=== PATIENT | male | born 1930 | race Caucasian/White ===

== ENCOUNTER → 2016-11-30 | Outpatient (CLI) | payer MEDICARE, BC ==
[2016-11-22 09:31] VITALS: BP 136/84
[~2016-11-30] MED LIST: ASCO100065 PO; ASPI81TA9 PO; CETI10TA22 PO; CHOL20003 PO; CRESTOR10 MG PO; DOCU-27 PO; FEXO180T81 PO; GABA-586 PO; GABA-587 PO; GLUC1TAB71 PO; HYDR12.58 PO; IOHEXOL 240 MG/ML 50ML VIAL. PO ONE; IOHEXOL 300 MG/ML 75 ML VIAL IV ONE; LEVO250T25 PO; LISI-338 PO; LISI2.5T PO; METH1TAB PO; METO25TA4 PO; MONT10TA9 PO; MULT-658 PO; OMEG1CAP38 PO; PANT40TA5 PO; PRED-220 PO; RIVA10TA PO; UBID1CAP19 PO; ZOLP5TAB PO
[2016-11-30 08:49] LABS: CREATININE 1.3 mg/dL (0.7-1.3); GFR 52.5
--- NOTE | 2016-11-30 15:32 | RAD ---
CT of the abdomen and pelvis with contrast, 11/30/2016: History: Abdominal pain Multidetector CT imaging was performed following oral and IV administration of contrast. The heart is mildly enlarged. Transvenous pacing leads extend into the heart. A small amount of pericardial fluid is present. The liver is unremarkable. No gallbladder abnormality is seen. There is no evidence of a pancreatic mass. The spleen is of normal size. There are several small cysts in both kidneys. The largest of these lies on the right and measures 3.5 cm. The kidneys show no evidence of obstruction. No adrenal abnormality is detected. Moderate aortoiliac calcific plaquing is present without evidence of aneurysm. No abdominal or pelvic adenopathy is seen. The bowel loops are not dilated. Several small sigmoid diverticula are noted. No paracolonic inflammatory process is seen. No free fluid or free air is evident in the abdomen or pelvis. IMPRESSION: 1. Small bilateral renal cysts. 2. Mild cardiomegaly with a small pericardial effusion. 3. Mild sigmoid diverticulosis. 4. No acute abdominal or pelvic abnormality is detected. PQRS Compliance Statement: One or more of the following individualized dose reduction techniques were utilized for this examination: 1. Automated exposure control 2. Adjustment of the mA and/or kV according to patient size 3. Use of iterative reconstruction technique
== END | disposition home or self-care (01) ==
LOC: CT 08:18
PROVIDERS: ATTEND Internal Medicine Gastroenterology
DX: I31.3 Pericardial effusion (noninflammatory) (principal); I51.7 Cardiomegaly; N28.1 Cyst of kidney, acquired; I70.0 Atherosclerosis of aorta; K57.30 Diverticulosis of large intestine without perforation or abscess without bleeding
CPT/HCPCS: 36415; 74177; 82565; 84520; Q9966; Q9967

== ENCOUNTER → 2017-03-22 | Outpatient (CLI) | payer MEDICARE, BC ==
[2016-11-22 09:31] VITALS: BP 136/84
[~2017-03-22] MED LIST changes: -IOHEXOL 240 MG/ML 50ML VIAL. PO ONE; -IOHEXOL 300 MG/ML 75 ML VIAL IV ONE
--- NOTE | 2017-03-22 16:07 | KCIC ---
AP pelvis with 2 view right hip HISTORY: Right hip and pelvic pain. Inguinal hernia surgery 2012. [place] a pop in that region one year ago. FINDINGS: Generalized bone demineralization. No evidence of an acute displaced fracture. Note that bone demineralization could limit detection of a nondisplaced fracture. Extensive bowel gas obscures skeletal structures. Joint spaces are intact. Mild deformity of the left inferior pubic ramus may represent an old fracture. IMPRESSION: Bony demineralization. No evidence of acute fracture or dislocation. Electronically signed by: Ananth Huff MD (03/22/2017 4:03 PM)
== END | disposition home or self-care (01) ==
LOC: KCIC 15:15
PROVIDERS: ATTEND Internal Medicine
DX: M81.0 Age-related osteoporosis without current pathological fracture (principal)
CPT/HCPCS: 73502

== ENCOUNTER → 2017-04-20 | Outpatient (CLI) | payer MEDICARE, BC ==
[2016-11-22 09:31] VITALS: BP 136/84
[~2017-04-20] MED LIST changes: +ASPI-612 PO; -ASPI81TA9 PO; -CHOL20003 PO; +CHOL20009 PO; +DOCU-109 PO; -DOCU-27 PO
--- NOTE | 2017-04-20 13:50 | CARD ---
APPROVED REPORT EXAM: Two-dimensional and M-mode echocardiogram with Doppler and color Doppler. Other Information Quality : GoodHR: 68bpm Rhythm : Pacemaker INDICATION Increased shortness of air 2D DIMENSIONS RVDd3.7 (2.9-3.5cm)Left Atrium(2D)5.1 (1.6-4.0cm) IVSd1.2 (0.7-1.1cm)Aortic Root(2D)6.3 (2.0-3.7cm) LVDd6.8 (3.9-5.9cm)LVOT Diameter2.5 (1.8-2.4cm) PWd1.2 (0.7-1.1cm)LVDs5.3 (2.5-4.0cm) FS (%) 21.4 %SV101.5 ml Aortic Valve AoV Peak Floyd.250.5cm/sAoV VTI48.8cm AO Peak GR.25.1mmHgLVOT Peak Floyd.63.6cm/s AO Mean GR.14mmHgAVA (VMAX)1.27cm2 AI P 1/2 Onof966ze Mitral Valve MV E Peak Gr.4mmHgMV E Mean Gr.2mmHg Pulmonary Valve PV Peak Bxvsxhgs69.5cm/s Tricuspid Valve TR P. Fbhyapjc113xh/sTR Peak Gr.24mmHg Pulmonary Vein S1 Rfgzqswu16.0cm/s LEFT VENTRICLE The Left Ventricle is mildly dilated. There is mild concentric left ventricular hypertrophy. Left fátima tricle systolic function is severely impaired. The Ejection Fraction is 25-30%. There is severe globa l hypokinesis of the left ventricle. Tissue Doppler imaging reveals moderate left ventricular diastol ic dysfunction. No left ventricle thrombus noted on this study. RIGHT VENTRICLE The right ventricle is normal size. There is normal right ventricular wall thickness. The right ventr icular systolic function is normal. Device leads in the right heart. ATRIA The left atrium is moderately dilated. The right atrium is moderately dilated. The interatrial septum is intact with no evidence for an atrial septal defect or patent foramen ovale as noted on 2-D or Do ppler imaging. AORTIC VALVE The aortic valve is severely sclerotic. Doppler and Color Flow revealed mild aortic regurgitation. Do ppler and color-flow analysis revealed mild aortic stenosis with maximum pressure gradient of 25 mmHg and mean pressure gradient of 14 mmHg. MITRAL VALVE Mitral annular calcification is mild. The mitral valve leaflets are thickened. There is no evidence o f mitral valve prolapse. There is no mitral valve stenosis. Doppler and Color Flow revealed mild to m oderate mitral regurgitation. The mitral regurgitant jet is posteriorly directed. TRICUSPID VALVE Doppler and Color Flow revealed mild tricuspid regurgitation. The pulmonary artery systolic pressure is estimated at 29 mmHg. PULMONIC VALVE The pulmonary valve is not well visualized but appears to opens well. Doppler and Color Flow revealed trace pulmonic valvular regurgitation. There is no pulmonic valvular stenosis by spectral Doppler. GREAT VESSELS The aortic root is severely enlarged. 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 The ascend ing aorta is moderately dilated. The pulmonary artery is normal. The IVC is normal in size and collap ses >50% with inspiration. PERICARDIAL EFFUSION There is a trace pericardial effusion with no hemodynamic significance. Critical Notification Critical Value: No <Conclusion> The Left Ventricle is mildly dilated. Left ventricle systolic function is severely impaired. The Ejection Fraction is 25-30%. There is mild concentric left ventricular hypertrophy. Doppler and color-flow analysis revealed mild aortic stenosis with maximum pressure gradient of 25 mm Hg and mean pressure gradient of 14 mmHg. Doppler and Color Flow revealed mild aortic regurgitation. Doppler and Color Flow revealed mild to moderate mitral regurgitation. The mitral regurgitant jet is posteriorly directed. Doppler and Color Flow revealed mild tricuspid regurgitation. The pulmonary artery systolic pressure is estimated at 29 mmHg. There is a trace pericardial effusion with no hemodynamic significance.
== END | disposition home or self-care (01) ==
LOC: ECHO 10:42
PROVIDERS: ATTEND Internal Medicine Cardiovascular Disease
DX: I08.3 Combined rheumatic disorders of mitral, aortic and tricuspid valves (principal); Z95.818 Presence of other cardiac implants and grafts
CPT/HCPCS: 93306

== ENCOUNTER → 2017-12-05 | Outpatient (CLI) | payer MEDICARE, BC | END | disposition home or self-care (01) | LOC: KCIC 13:57 | DX: J18.9 Pneumonia, unspecified organism (principal); D71 Functional disorders of polymorphonuclear neutrophils; I89.8 Other specified noninfective disorders of lymphatic vessels and lymph nodes; R91.8 Other nonspecific abnormal finding of lung field | CPT/HCPCS: 71046 ==

== ENCOUNTER → 2017-12-15 | Outpatient (CLI) | payer MEDICARE, BC | END | disposition home or self-care (01) | LOC: KCIC 14:24 | DX: J18.9 Pneumonia, unspecified organism (principal); J84.10 Pulmonary fibrosis, unspecified; I51.7 Cardiomegaly; I70.0 Atherosclerosis of aorta; I77.1 Stricture of artery | CPT/HCPCS: 71046 ==

== ENCOUNTER → 2018-01-02 | Outpatient (CLI) | payer MEDICARE, BC | LOC: PNCL 14:01 | DX: M54.5 Low back pain (principal); M19.90 Unspecified osteoarthritis, unspecified site; I10 Essential (primary) hypertension; H40.89 Other specified glaucoma; K21.9 Gastro-esophageal reflux disease without esophagitis; B02.8 Zoster with other complications; Z98.890 Other specified postprocedural states; Z95.0 Presence of cardiac pacemaker; Z88.5 Allergy status to narcotic agent; Z79.899 Other long term (current) drug therapy; Z91.048 Other nonmedicinal substance allergy status; Z82.49 Family history of ischemic heart disease and other diseases of the circulatory system | CPT/HCPCS: G0463 ==

== ENCOUNTER → 2018-01-11 | Outpatient (CLI) | payer MEDICARE, BC ==
[~2018-01-11] MED LIST changes: -ASCO100065 PO; -ASPI-612 PO; +BUPIVACAINE MPF 0.25% 10 ML VIAL.; -CETI10TA22 PO; -CHOL20009 PO; -CRESTOR10 MG PO; -DOCU-109 PO; -FEXO180T81 PO; -GABA-586 PO; -GABA-587 PO; -GLUC1TAB71 PO; -HYDR12.58 PO; +IOHEXOL 180 MG/ML 10 ML VIAL.; -LEVO250T25 PO; -LISI-338 PO; -LISI2.5T PO; -METH1TAB PO; -METO25TA4 PO; -MONT10TA9 PO; -MULT-658 PO; -OMEG1CAP38 PO; -PANT40TA5 PO; -PRED-220 PO; -RIVA10TA PO; -UBID1CAP19 PO; -ZOLP5TAB PO; +methylPREDNISolone ACETATE 40 MG/ML VIAL.; +methylPREDNISolone ACETATE 80 MG/ML VIAL.
== END | disposition home or self-care (01) ==
LOC: PNCL 10:57
DX: M51.36 Other intervertebral disc degeneration, lumbar region (principal); M47.816 Spondylosis without myelopathy or radiculopathy, lumbar region; Z88.6 Allergy status to analgesic agent; C44.90 Unspecified malignant neoplasm of skin, unspecified; F32.9 Major depressive disorder, single episode, unspecified; K21.9 Gastro-esophageal reflux disease without esophagitis; I10 Essential (primary) hypertension; I48.91 Unspecified atrial fibrillation; E78.00 Pure hypercholesterolemia, unspecified; G62.9 Polyneuropathy, unspecified
CPT/HCPCS: 64493; 64494; J1030; J1040; J3490; Q9965

== ENCOUNTER → 2018-01-25 | Outpatient (CLI) | payer MEDICARE, BC | END | disposition home or self-care (01) | LOC: PNCL 13:16 | DX: M51.36 Other intervertebral disc degeneration, lumbar region (principal); M47.817 Spondylosis without myelopathy or radiculopathy, lumbosacral region; M47.896 Other spondylosis, lumbar region | CPT/HCPCS: G0463 ==

== ENCOUNTER → 2018-01-27 | Outpatient (CLI) | payer MEDICARE, BC | END | disposition home or self-care (01) | LOC: PNCL 10:40 | DX: M51.37 Other intervertebral disc degeneration, lumbosacral region (principal); M47.817 Spondylosis without myelopathy or radiculopathy, lumbosacral region | CPT/HCPCS: 64493; 64494; J1030; J1040; J3490; Q9965 ==

== ENCOUNTER → 2018-02-10 | Outpatient (CLI) | payer MEDICARE, BC | END | disposition home or self-care (01) | LOC: PNCL 10:03 | DX: M51.36 Other intervertebral disc degeneration, lumbar region (principal); M47.817 Spondylosis without myelopathy or radiculopathy, lumbosacral region | CPT/HCPCS: G0463 ==

== ENCOUNTER → 2018-02-21 | Outpatient (CLI) | payer MEDICARE, BC ==
[~2018-02-21] MED LIST changes: -IOHEXOL 180 MG/ML 10 ML VIAL.; +LIDOCAINE 1% PF 2 ML VIAL.; +LIDOCAINE 2% PF Vial for OR 5 ML VIAL.
== END | disposition home or self-care (01) ==
LOC: PNCL 13:11
DX: M51.36 Other intervertebral disc degeneration, lumbar region (principal); M47.817 Spondylosis without myelopathy or radiculopathy, lumbosacral region; I10 Essential (primary) hypertension; E78.00 Pure hypercholesterolemia, unspecified; K21.9 Gastro-esophageal reflux disease without esophagitis; F32.9 Major depressive disorder, single episode, unspecified; I48.91 Unspecified atrial fibrillation; H91.90 Unspecified hearing loss, unspecified ear; Z98.49 Cataract extraction status, unspecified eye; G62.89 Other specified polyneuropathies; Z95.5 Presence of coronary angioplasty implant and graft; Z95.0 Presence of cardiac pacemaker; Z86.010 Personal history of colon polyps; Z98.890 Other specified postprocedural states; Z85.828 Personal history of other malignant neoplasm of skin; Z88.5 Allergy status to narcotic agent; Z79.899 Other long term (current) drug therapy
CPT/HCPCS: 64635; 64636; J1030; J1040; J3490

== ENCOUNTER → 2018-03-21 | Outpatient (CLI) | payer MEDICARE, BC | END | disposition home or self-care (01) | LOC: PNCL 13:42 | DX: M51.36 Other intervertebral disc degeneration, lumbar region (principal); M47.817 Spondylosis without myelopathy or radiculopathy, lumbosacral region | CPT/HCPCS: G0463 ==

== ENCOUNTER → 2018-03-24 | Outpatient (CLI) | payer MEDICARE, BC ==
[2018-03-24] MEDS: REGADENOSON 0.4 MG/5 ML DISP.SYRIN. IV (11:45)
== END | disposition home or self-care (01) ==
LOC: ECHO 07:45
DX: I48.91 Unspecified atrial fibrillation (principal); I31.3 Pericardial effusion (noninflammatory); I27.20 Pulmonary hypertension, unspecified; I08.3 Combined rheumatic disorders of mitral, aortic and tricuspid valves
CPT/HCPCS: 78452; 93017; 93306; 96374; 96375; 96376; A9500; J2785

== ENCOUNTER → 2018-03-28 | Outpatient (CLI) | payer MEDICARE, BC | END | disposition home or self-care (01) | LOC: CT 14:38 | DX: M51.16 Intervertebral disc disorders with radiculopathy, lumbar region (principal); M48.061 Spinal stenosis, lumbar region without neurogenic claudication; N28.1 Cyst of kidney, acquired; Z88.5 Allergy status to narcotic agent; Z98.49 Cataract extraction status, unspecified eye; Z96.1 Presence of intraocular lens; G62.9 Polyneuropathy, unspecified; Z95.5 Presence of coronary angioplasty implant and graft; E78.00 Pure hypercholesterolemia, unspecified; I48.91 Unspecified atrial fibrillation; I10 Essential (primary) hypertension; Z79.01 Long term (current) use of anticoagulants; Z86.010 Personal history of colon polyps; K21.9 Gastro-esophageal reflux disease without esophagitis; F32.9 Major depressive disorder, single episode, unspecified; Z85.828 Personal history of other malignant neoplasm of skin | CPT/HCPCS: 72131 ==

== ENCOUNTER → 2018-04-17 | Outpatient (CLI) | payer MEDICARE, BC | END | disposition home or self-care (01) | LOC: US 13:46 | DX: I70.293 Other atherosclerosis of native arteries of extremities, bilateral legs (principal); M79.89 Other specified soft tissue disorders; I12.9 Hypertensive chronic kidney disease with stage 1 through stage 4 chronic kidney disease, or unspecified chronic kidney disease; N18.3 Chronic kidney disease, stage 3 (moderate); E78.5 Hyperlipidemia, unspecified; E78.00 Pure hypercholesterolemia, unspecified; J44.9 Chronic obstructive pulmonary disease, unspecified | CPT/HCPCS: 93925; 93970 ==

== ENCOUNTER → 2018-06-30 | Outpatient (CLI) | payer MEDICARE, BC ==
[2016-11-22 09:31] VITALS: BP 136/84
[~2018-06-30] MED LIST changes: +ASCO100065 PO; +ASPI-612 PO; -BUPIVACAINE MPF 0.25% 10 ML VIAL.; +CETI10TA22 PO; +CHOL20009 PO; +CRESTOR10 MG PO; +DOCU-109 PO; +FEXO180T81 PO; +FURO40TA4 PO; +GABA-586 PO; +GABA-587 PO; +GLUC1TAB71 PO; +HYDR12.58 PO; +LEVO250T25 PO; -LIDOCAINE 1% PF 2 ML VIAL.; -LIDOCAINE 2% PF Vial for OR 5 ML VIAL.; +LISI-338 PO; +LISI2.5T PO; +METH1TAB PO; +METO25TA4 PO; +MONT10TA9 PO; +MULT-658 PO; +OMEG1CAP38 PO; +OMEP20CA9 PO; +PANT40TA5 PO; +POTA10TA12 PO; +PRED-220 PO; +RIVA10TA PO; +RIVA15TA PO; +UBID1CAP19 PO; +ZOLP5TAB PO; -methylPREDNISolone ACETATE 40 MG/ML VIAL.; -methylPREDNISolone ACETATE 80 MG/ML VIAL.
--- NOTE | 2018-06-30 15:35 | CARD ---
MR#: [id number] Date of Study: 06/30/2018 Ordering Physician: TREMAYNE FLORES, Referring Physician: TREMAYNE FLORES, Tech: Mel Avalos APPROVED REPORT EXAM: Two-dimensional and M-mode echocardiogram with Doppler and color Doppler. Other Information Quality : AverageHR: 69bpm INDICATION Cardiomyopathy RISK FACTORS Hypertension Hyperlipidemia 2D DIMENSIONS RVDd2.2 (2.9-3.5cm)Left Atrium(2D)5.1 (1.6-4.0cm) IVSd1.4 (0.7-1.1cm)Aortic Root(2D)4.9 (2.0-3.7cm) LVDd7.2 (3.9-5.9cm)LVOT Diameter2.6 (1.8-2.4cm) PWd1.5 (0.7-1.1cm)LVDs5.8 (2.5-4.0cm) FS (%) 19.3 %SV105.4 ml Aortic Valve AoV Peak Floyd.293.1cm/sAoV VTI52.8cm AO Peak GR.34.4mmHgLVOT Peak Floyd.55.7cm/s AO Mean GR.16mmHgAVA (VMAX)0.98cm2 Mitral Valve MV E Zlsvzeoi91.0cm/sMV DECEL ITDU139fp MV A Pqegexph84.2cm/sE/A Ratio3.3 Pulmonary Valve PV Peak Egugazjj51.2cm/s Tricuspid Valve TR P. Nkuqyfej525dl/sRAP RLCVBSEG42mmQe TR Peak Gr.63azRvFAPE31jhPp Pulmonary Vein S1 Bohyfxnm88.2cm/sD2 Vtdpleue26.7cm/s PVa cgdozyyg721dhaq LEFT VENTRICLE The Left Ventricle is moderately dilated. There is borderline concentric left ventricular hypertrophy . The systolic function is moderate to moderately severely impaired. The Ejection Fraction is 30-35%. There is global hypokinesis of the left ventricle. RIGHT VENTRICLE The right ventricle is normal size. There is normal right ventricular wall thickness. The right ventr icular systolic function is normal. ATRIA The left atrium is moderately dilated. The right atrium is dilated. The interatrial septum is intact with no evidence for an atrial septal defect or patent foramen ovale as noted on 2-D or Doppler imagi ng. AORTIC VALVE The aortic valve is calcified and displays decreased opening. Doppler and Color Flow revealed no sign ificant aortic regurgitation. There is mild valvular aortic stenosis. The aortic valve maximum pressu re gradient of 34 mmHg and mean pressure gradient of 16 mmHg. Doppler and color-flow analysis reveale d mild to moderate aortic stenosis. MITRAL VALVE The mitral valve is mildly thickened. Mitral annular calcification is mild. There is no mitral valve stenosis. Doppler and Color-flow revealed trace mitral regurgitation. TRICUSPID VALVE Doppler and Color Flow revealed trace tricuspid regurgitation. PULMONIC VALVE The pulmonary valve is normal in structure and function. Doppler and Color Flow revealed trace pulmon ic valvular regurgitation. GREAT VESSELS The aortic root is significantly enlarged. 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 Normal pulmonar y venous flow (Doppler). The IVC is dilated and collapses <50% with inspiration. PERICARDIAL EFFUSION There is a trace pericardial effusion with no hemodynamic significance. Critical Notification Critical Value: No <Conclusion> The left ventricle is moderately dilated. The systolic function is moderate to moderately severely impaired. The Ejection Fraction is 30-35%. There is global hypokinesis. The aortic valve is calcified and displays decreased opening. The aortic valve maximum pressure gradient of 34 mmHg and mean pressure gradient of 16 mmHg. Doppler and color-flow analysis revealed mild to moderate aortic stenosis. Doppler and Color Flow revealed no significant aortic regurgitation. Doppler and Color Flow revealed trace tricuspid regurgitation. The aortic root is significantly enlarged. 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 Signed by : Tremayne Flores MD Electronically Approved : 06/30/2018 15:33:45
== END | disposition home or self-care (01) ==
LOC: ECHO 13:25
PROVIDERS: ATTEND Internal Medicine Cardiovascular Disease
DX: I35.0 Nonrheumatic aortic (valve) stenosis (principal); E78.00 Pure hypercholesterolemia, unspecified; K21.9 Gastro-esophageal reflux disease without esophagitis; J44.9 Chronic obstructive pulmonary disease, unspecified; I12.9 Hypertensive chronic kidney disease with stage 1 through stage 4 chronic kidney disease, or unspecified chronic kidney disease; N18.3 Chronic kidney disease, stage 3 (moderate); I48.2 Chronic atrial fibrillation; I25.10 Atherosclerotic heart disease of native coronary artery without angina pectoris; Z95.818 Presence of other cardiac implants and grafts; Z95.5 Presence of coronary angioplasty implant and graft; Z95.0 Presence of cardiac pacemaker; Z85.828 Personal history of other malignant neoplasm of skin; Z86.79 Personal history of other diseases of the circulatory system; Z86.2 Personal history of diseases of the blood and blood-forming organs and certain disorders involving the immune mechanism; Z86.010 Personal history of colon polyps; Z88.8 Allergy status to other drugs, medicaments and biological substances; Z88.5 Allergy status to narcotic agent; Z88.6 Allergy status to analgesic agent; Z91.048 Other nonmedicinal substance allergy status; Z82.49 Family history of ischemic heart disease and other diseases of the circulatory system
CPT/HCPCS: 93306

== ENCOUNTER 2018-09-04 16:25 | Emergency (ER) | payer MEDICARE, BC ==
[~2018-09-04] VITALS: Ht 175.3 cm; Wt 71.7 kg
[2018-09-04 16:43] VITALS: BP 156/74
[2018-09-04] MEDS ORDERED: DIPHTH,PERTUSS(ACELL),TET TOX 0.5 ML DISP.SYRIN. VAX IM ONE (16:45)
[2018-09-04] MEDS ORDERED: LIDOCAINE/EPI/TETRACAINE TOPICAL GEL 3 ML. TP ONE (16:45)
--- NOTE | 2018-09-04 17:03 | RAD ---
3 view study of the right thumb Clinical indications: Laceration impact injury of the first digit. FINDINGS: There is a nondisplaced longitudinal fracture of the medial distal corner of the metaphysis and epiphysis of the first proximal phalanx with intra-articular extension but no significant articular surface offset. No dislocation is seen. No lytic process. IMPRESSION: Posttraumatic acute fracture of the first proximal phalanx. Electronically signed by: Darryl Hercules MD (09/04/2018 5:00 PM) [facility]
[2018-09-04] MEDS ORDERED: cefTRIAXone IM 1 GM VIAL IM ONE (17:15)
[2018-09-04] MEDS ORDERED: LIDOCAINE 1% PF 2 ML VIAL. INJ ONE (17:15)
--- NOTE | 2018-09-04 17:51 | PHYS DOC ---
Past Medical History Past Medical History: No Pertinent History Past Surgical History: No Surgical History Alcohol Use: None Drug Use: None Adult General Chief Complaint Chief Complaint: THUMB HPI HPI Patient is a 88 year old male who presents with right thumb laceration, patient states he was wiping leaves off the lawnmower in the blades cut him. Patient is right-handed. Review of Systems Review of Systems Constitutional: Denies fever or chills [] Musculoskeletal: Denies back pain or joint pain [] Integument:right thumb laceration Neurologic: Denies headache, focal weakness or sensory changes [] All other systems were reviewed and found to be within normal limits, except as documented in this note. Current Medications Current Medications Current Medications Medications (Trade) Dose Ordered Sig/Guevara Start Time Stop Time Status Last Admin Dose Admin Ceftriaxone Sodium (Rocephin Im) 1 gm 1X ONCE 09/04/18 17:15 09/04/18 17:16 DC 09/04/18 17:21 1 GM Diphtheria/ Tetanus/Acell Pertussis (Boostrix) 0.5 ml ONCE ONCE 09/04/18 16:45 09/04/18 16:46 DC 09/04/18 16:41 0.5 ML Lidocaine HCl (Xylocaine-Mpf 1% 2ml Vial) 2 ml 1X ONCE 09/04/18 17:15 09/04/18 17:16 DC 09/04/18 17:22 2 ML Lidocaine/ Epinephrine (Let Topical) 3 ml 1X ONCE 09/04/18 16:45 09/04/18 16:46 DC 09/04/18 16:39 3 ML Allergies Allergies Allergies Coded Allergies Type Severity Reaction Last Updated Verified morphine Adverse Reaction Mild Anxiety 11/22/16 Yes Physical Exam Physical Exam Constitutional: Well developed, well nourished, no acute distress, non-toxic appearance. [] Skin: Skin avulsion type laceration at the tip of the finger approx. 2X1 cm, no obvious tendon involvement, patient able to flex and extend the finger in all the joints. Subungual hematoma noted on the nail bed approximately 20% +2 right radial pulse. Adequate radius sensation to the right thumb. Back: No tenderness, no CVA tenderness. [] Extremities: No tenderness, no cyanosis, no clubbing, ROM intact, no edema. [] Neurologic: Alert and oriented X 3, normal motor function, normal sensory function, no focal deficits noted. [] Psychologic: Affect normal, judgement normal, mood normal. [] Current Patient Data Vital Signs Vital Signs Date Time Temp Pulse Resp B/P (MAP) Pulse Ox O2 Delivery O2 Flow Rate FiO2 09/04/18 16:43 98.1 80 20 156/74 (101) 99 Room Air 98.1 EKG EKG [] Radiology/Procedures Radiology/Procedures []PROCEDURE: FINGER(S) RIGHT 3 view study of the right thumb Clinical indications: Laceration impact injury of the first digit. FINDINGS: There is a nondisplaced longitudinal fracture of the medial distal corner of the metaphysis and epiphysis of the first proximal phalanx with intra-articular extension but no significant articular surface offset. No dislocation is seen. No lytic process. IMPRESSION: Posttraumatic acute fracture of the first proximal phalanx. Electronically signed by: Dafne Hercules MD (09/04/2018 5:00 PM) [facility] DICTATED and SIGNED BY: DAFNE HERCULES MD DATE: 09/04/181657 Course & Med Decision Making Course & Med Decision Making Pertinent Labs and Imaging studies reviewed. (See chart for details) This is a 88-year-old male patient presenting to the ED today with a skin avulsion to the right thumb from lawnmower injury, patient was caught by one of the blades while wiping off leaves from the lawnmower. See history of present illness. Right thumb x-rays interpreted by radiologist were noted for posttraumatic acute fracture of the first proximal phalanx. Finger was cleaned and covered with non stick dressing splint provided. Ice elevation. Given Rocephin in the ED 1 gm. Patient will follow up with hand surgeon in the course of this week. Discharge and cephalexin. Tetanus updated Dragon Disclaimer Dragon Disclaimer This electronic medical record was generated, in whole or in part, using a voice recognition dictation system. Departure Departure Impression: Primary Impression: Finger fracture, right Additional Impression: Avulsion of skin of finger Disposition: 01 HOME, SELF-CARE Condition: STABLE Referrals: LINDY ALEGRIA MD (PCP) Patient Instructions: Deep Skin Avulsion, Finger Avulsion Additional Instructions: You were evaluated in the emergency room for right thumb laceration. You also have a fracture to the affected finger. Please call [facility] tomorrow and request an appointment with a hand surgeon. Their number is [phone]. Take your antibiotics to completion, Ice and elevate the extremity. Scripts Docusate Sodium (DOCUSATE SODIUM) 100 Mg Capsule 1 CAP PO DAILY, #30 CAP Prov: MATTHEW DYE APRN 09/04/18 Acetaminophen With Codeine (TYLENOL WITH CODEINE #3 TABLET) 1 Each Tablet 1 TAB PO PRN Q6HRS PRN for PAIN, #20 TAB Prov: MATTHEW DYE APRN 09/04/18 Cephalexin (CEPHALEXIN) 500 Mg Tablet 1 TAB PO QID, #40 TAB Prov: MATTHEW DYE APRN 09/04/18 Problem Qualifiers Primary Impression: Finger fracture, right Encounter type: initial encounter Finger: thumb Fracture type: open Phalanx: distal Fracture alignment: nondisplaced Qualified Codes: S62.524B - Nondisplaced fracture of distal phalanx of right thumb, initial encounter for open fracture Additional Impression: Avulsion of skin of finger Encounter type: initial encounter Qualified Codes: S61.209A - Unspecified open wound of unspecified finger without damage to nail, initial encounter MATTHEW DYE APRN Sep 04, 2018 17:51
[2018-09-04] MEDS ORDERED: CEPH500T PO (18:02)
[2018-09-04] MEDS ORDERED: ACET-704 PO (18:02)
[2018-09-04] MEDS ORDERED: DOCU100C28 PO (18:02)
== END 2018-09-04 18:06 | disposition home or self-care (01) ==
LOC: ER 16:25
DX: S62.524B Nondisplaced fracture of distal phalanx of right thumb, initial encounter for open fracture (principal); Z88.5 Allergy status to narcotic agent; W31.89XA Contact with other specified machinery, initial encounter; Y93.H2 Activity, gardening and landscaping; Y92.89 Other specified places as the place of occurrence of the external cause; Y99.8 Other external cause status
CPT/HCPCS: 73140; 90471; 90715; 96372; 99284; J0696; 99283-25

== ENCOUNTER → 2018-11-20 | Outpatient (CLI) | payer MEDICARE, BC ==
[~2018-11-20] MED LIST changes: +ACET-704 PO; +CEPH500T PO; +DOCU100C28 PO; -GABA-586 PO; -GABA-587 PO; +GABA-689 PO; +GABA300C18 PO
--- NOTE | 2018-11-20 13:28 | KCIC ---
PQRS Compliance statement: One or more of the following individualized dose reduction techniques were utilized for this examination: 1. Automated exposure control. 2. Adjustment of the mA and/or kV according to patient size. 3. Use of iterative reconstruction technique. INDICATION: Chronic low back pain. Hurts to stand up straight and regional his head. TECHNIQUE: CT of the lumbar spine without IV contrast with multiplanar reformats. COMPARISON: 03/28/2018 FINDINGS: There are 5 lumbar type vertebral bodies. Lumbar spine is in normal anatomic alignment. No compression deformities. Facet joints are in normal anatomic alignment. No significant intervertebral disc space narrowing. No acute fractures. Segmental analysis: L1-L2: No disc bulge or herniation. Mild bilateral facet arthropathy. Mild bilateral neuroforamina narrowing. L2-L3: Mild circumferential disc bulge flattening anterior thecal sac. Mild bilateral facet arthropathy. Mild bilateral ligamentum flavum thickening. Moderate bilateral neuroforamina narrowing. L3-L4: Mild circumferential disc bulge flattening intrathecal sac. Severe bilateral facet arthropathy, left more than right. Severe bilateral neuroforamina narrowing. L4-L5: Circumferential disc bulge with superimposed right foraminal disc protrusion and annular calcifications. Moderate bilateral facet arthropathy. Severe bilateral neuroforamina narrowing. L5-S1: No disc bulge or herniation. No neuroforamina narrowing. No facet arthropathy. Mild diffuse atherosclerotic disease of the abdominal aorta. Simple cyst in the right ovary measuring 3.8 cm. IMPRESSION: 1. Bilateral degenerative disc disease with facet arthropathy causing varying amount of neural foramina narrowing as described above. Electronically signed by: Colt Olivo DO (11/20/2018 1:23 PM) [id number]
== END | disposition home or self-care (01) ==
LOC: KCIC CT 10:12
PROVIDERS: ATTEND Internal Medicine
DX: M51.16 Intervertebral disc disorders with radiculopathy, lumbar region (principal); M48.061 Spinal stenosis, lumbar region without neurogenic claudication; I70.0 Atherosclerosis of aorta; M51.26 Other intervertebral disc displacement, lumbar region; M12.88 Other specific arthropathies, not elsewhere classified, other specified site; G89.29 Other chronic pain
CPT/HCPCS: 72131

== ENCOUNTER 2018-12-26 09:40 | Outpatient (CLI) | payer MEDICARE, BC ==
[~2018-12-26 09:40] MED LIST changes: +CONTRAST GIVEN. MC PRN; +IOHEXOL 180 MG/ML 10 ML VIAL. IJ ONE; +LIDOCAINE WITH 8.4% SOD BICARB 3 ML DISP.SYRIN. INJ ONE; +OMEP20CA10 PO; -OMEP20CA9 PO
[2018-12-26 11:00] VITALS: BP 114/79
--- NOTE | 2018-12-26 11:53 | RAD ---
Lumbar myelogram, 12/26/2018: History: Lumbar radiculopathy Under local anesthesia, aseptic conditions and fluoroscopic guidance a lumbar puncture was performed at the L2-3 level utilizing a 25-gauge Karla spinal needle. Good clear CSF flow was obtained following which 14 cc of Omnipaque 180 was injected into the thecal sac. The spinal needle was then removed and hemostasis obtained. Appropriate lumbar digital imaging was then performed. The patient tolerated the procedure well and was sent to CT in good condition. The following findings are delineated on the myelogram: 1. There are 4 lumbar type vertebral bodies. For purposes of these reports the lowest obvious lumbar disc space will be considered to be L4-S1. 2. There is a minimal anterior extradural defect at L3-4 without evidence of spinal stenosis. No other significant focal intradural or extradural defect is seen. 3. On the upright views there is slight anterolisthesis at L3-4. No definite instability is seen with flexion and extension. 4. There is symmetric opacification of the nerve root sleeves. CT lumbar spine-post myelogram, 12/26/2018: Multidetector CT imaging was performed with multiplanar reconstructions produced. The following findings are delineated: 1. No fracture or destructive bony lesion is seen. 2. No significant posterior disc bulge or protrusion is present at L1-2 level. The central spinal canal and neural foramina are well maintained. 3. At L2-3 there is mild posterior disc bulging. There is mild facet joint arthropathy with posterior ligamentous thickening. The central spinal canal is well maintained. The slight lateral disc bulges are causing mild inferior foraminal narrowing bilaterally. 4. At L3-4 there are more extensive hypertrophic degenerative changes involving the facet joints with posterior ligamentous thickening. There is mild posterior disc bulging laterally. The combination of findings is causing mild inferior foraminal narrowing. The nerve root sleeves in the upper aspects of the neural foramina are not compressed. The central spinal canal is well-maintained. 5. At L4-S1 there is moderate bilateral facet joint arthropathy. There is mild posterior disc bulging. The central spinal canal is widely patent. There is mild inferior foraminal narrowing bilaterally, similar to that seen at the other levels. 6. Incidental note is made of a moderate sized right renal cyst. There is moderate calcific plaquing of the partially visualized abdominal aorta. IMPRESSION: 1. 4 lumbar type vertebral bodies as noted above. 2. Moderate facet joint arthropathy bilaterally at L3-4 and L4-S1. 3. Slight anterolisthesis at L3-4 in the upright position. 4. Mild scattered degenerative changes without evidence of central spinal or high-grade foraminal stenosis. PQRS Compliance Statement: One or more of the following individualized dose reduction techniques were utilized for this examination: 1. Automated exposure control 2. Adjustment of the mA and/or kV according to patient size 3. Use of iterative reconstruction technique
== END 2018-12-26 11:20 | disposition home or self-care (01) ==
LOC: RAD 09:40
PROVIDERS: ATTEND Neurological Surgery
DX: M47.26 Other spondylosis with radiculopathy, lumbar region (principal); M48.07 Spinal stenosis, lumbosacral region; M43.17 Spondylolisthesis, lumbosacral region; M51.16 Intervertebral disc disorders with radiculopathy, lumbar region; M53.3 Sacrococcygeal disorders, not elsewhere classified; M12.88 Other specific arthropathies, not elsewhere classified, other specified site; N28.1 Cyst of kidney, acquired; I70.0 Atherosclerosis of aorta
CPT/HCPCS: 72132; 72265; Q9965

== ENCOUNTER → 2020-02-18 | Outpatient (CLI) | payer MEDICARE, BC ==
[~2020-02-18] MED LIST changes: -CETI10TA22 PO; +CETI10TA24 PO; -CONTRAST GIVEN. MC PRN; -IOHEXOL 180 MG/ML 10 ML VIAL. IJ ONE; -LIDOCAINE WITH 8.4% SOD BICARB 3 ML DISP.SYRIN. INJ ONE; +MONT10TA49 PO; -MONT10TA9 PO; -OMEP20CA10 PO; +OMEP20CA16 PO; -PANT40TA5 PO; +PANT40TA77 PO
--- NOTE | 2020-02-18 15:32 | CARD ---
MR#: [id number] Date of Study: 02/18/2020 Ordering Physician: JASON FLORES, Referring Physician: JASON FLORES, Tech: Lorraine Arteaga [facility] APPROVED REPORT EXAM: Two-dimensional and M-mode echocardiogram with Doppler and color Doppler. Other Information Quality : Fair INDICATION Dyspnea Pacemaker 2D DIMENSIONS RVDd2.9 (2.9-3.5cm)Left Atrium(2D)4.5 (1.6-4.0cm) IVSd1.9 (0.7-1.1cm)Aortic Root(2D)5.9 (2.0-3.7cm) LVDd5.7 (3.9-5.9cm)LVOT Diameter2.3 (1.8-2.4cm) PWd1.6 (0.7-1.1cm)LVDs4.7 (2.5-4.0cm) FS (%) 16.9 %SV55.9 ml M-Mode DIMENSIONS Aortic Root1.33 (2.2-3.7cm) Aortic Valve AoV Peak Floyd.239.4cm/sAoV VTI42.3cm AO Peak GR.22.9mmHgLVOT Peak Floyd.53.5cm/s AO Mean GR.15mmHgAVA (VMAX)0.95cm2 BREANA (VTI)1.10cm2 Mitral Valve MV E Jwuimglu82.3cm/sMV DECEL [id number] MV A Beecaznq25.7cm/sE/A Ratio2.9 Tricuspid Valve TR P. Qpxdnrvv960jo/sRAP ZUIWEFZO0vdIy TR Peak Gr.48znWuYVSM87yyBq Pulmonary Vein S1 Itqqipgj09.0cm/sD2 Dqgslpwm03.1cm/s LEFT VENTRICLE The Left Ventricle is mildly dilated. There is mild to moderate concentric left ventricular hypertrop hy. Left ventricle systolic function is moderately impaired. The Ejection Fraction is estimated at 30 %. There is moderate global hypokinesis of the left ventricle. RIGHT VENTRICLE The right ventricle is normal size. The right ventricular systolic function is normal. There are manuel ce leads in the right ventricle and atrium. ATRIA The left atrium is mildly dilated. The right atrium is mildly dilated. The interatrial septum is inta ct with no evidence for an atrial septal defect or patent foramen ovale as noted on 2-D or Doppler im aging. AORTIC VALVE The aortic valve is calcified and displays decreased opening. Doppler and Color Flow revealed trace a ortic regurgitation. Calculated aortic valve area is 1.1 cm2 with maximum pressure gradient of 24 mmH g and mean pressure gradient of 15 mmHg. Doppler and color-flow analysis revealed moderate aortic clovis nosis. MITRAL VALVE The mitral valve is normal in structure and function. There is no evidence of mitral valve prolapse. There is no mitral valve stenosis. Doppler and Color-flow revealed mild mitral regurgitation. TRICUSPID VALVE The tricuspid valve is normal in structure and function. Doppler and Color Flow revealed trace tricus pid regurgitation. The PA pressure was estimated at 25 mmHg. There is no tricuspid valve stenosis. PULMONIC VALVE The pulmonic valve is not well visualized. Doppler and Color Flow revealed no pulmonic valvular regur gitation. There is no pulmonic valvular stenosis. GREAT VESSELS There is a sinus of valsalva anuerysm measuring 5.9 cm. The ascending aorta is moderately dilated at 4.6 cm. The IVC is normal in size and collapses >50% with inspiration. PERICARDIAL EFFUSION There is no evidence of significant pericardial effusion. Critical Notification Critical Value: No <Conclusion> The left ventricle is mildly dilated. Left ventricle systolic function is moderately impaired. The Ejection Fraction is estimated at 30%. There is moderate global hypokinesis of the left ventricle. There is mild to moderate concentric left ventricular hypertrophy. There are device leads in the right ventricle and atrium. The aortic valve is calcified and displays decreased opening. Doppler and Color Flow revealed trace aortic regurgitation. Calculated aortic valve area is 1.1 cm2 with maximum pressure gradient of 24 mmHg and mean pressure g radient of 15 mmHg. Doppler and color-flow analysis revealed moderate aortic stenosis. Doppler and Color-flow revealed mild mitral regurgitation. Doppler and Color Flow revealed trace tricuspid regurgitation. The PA pressure was estimated at 25 mmHg. There is a sinus of valsalva anuerysm measuring 5.9 cm. The ascending aorta is moderately dilated at 4.6 cm. Signed by : Jason Flores MD Electronically Approved : 02/18/2020 15:31:43
== END | disposition home or self-care (01) ==
LOC: ECHO 13:43
PROVIDERS: ATTEND Internal Medicine Cardiovascular Disease
DX: I08.0 Rheumatic disorders of both mitral and aortic valves (principal)
CPT/HCPCS: 93306

== ENCOUNTER → 2021-01-27 | Outpatient (CLI) | payer MEDICARE, BC ==
[~2021-01-27] MED LIST changes: -ASPI-612 PO; +ASPI-886 PO; -CETI10TA24 PO; +CETI10TA74 PO; -LISI-338 PO; +LISI-517 PO
--- NOTE | 2021-01-28 09:35 | CARD ---
MR#: [id number] Date of Study: 01/27/2021 Ordering Physician: JASON ARROYO, Referring Physician: JASON ARROYO, Tech: Mel Avalos, [facility] APPROVED REPORT EXAM: Two-dimensional and M-mode echocardiogram with Doppler and color Doppler. Other Information Quality : AverageHR: 84bpm INDICATION Aortic Valve Disease Surgery/Intervention Pacemaker: Date: 2015 RISK FACTORS Hypertension Hyperlipidemia 2D DIMENSIONS RVDd3.1 (2.9-3.5cm)Left Atrium(2D)3.7 (1.6-4.0cm) IVSd1.5 (0.7-1.1cm)Aortic Root(2D)5.6 (2.0-3.7cm) LVDd5.5 (3.9-5.9cm)LVOT Diameter2.2 (1.8-2.4cm) PWd1.2 (0.7-1.1cm)LVDs3.8 (2.5-4.0cm) FS (%) 30.4 %SV85.0 ml LVEF(%)57.2 (>50%) Aortic Valve AoV Peak Floyd.238.3cm/sAoV VTI39.9cm AO Peak GR.22.7mmHgLVOT Peak Floyd.73.7cm/s LVOT VTI 12.38cmAO Mean GR.14mmHg BREANA (VMAX)0.83lo6HPQ (VTI)1.18cm2 Mitral Valve MV E Mfrfrvsk48.2cm/sMV DECEL XDSZ327bn MV A Crvrmrfp77.3cm/sMV E Mean Gr.2mmHg MV GUX22puN/A Ratio2.8 MVA (PHT)4.15cm2 TDI E/Lateral E'15.0E/Medial E'20.8 Pulmonary Valve PV Peak Cbvssshq57.2cm/sPV Peak Grad.2mmHg Tricuspid Valve TR P. Mnfbcwra267ls/sRAP XLWDPDLA9wvOk TR Peak Gr.70byWlTAKV28jyLp LEFT VENTRICLE The left ventricle is normal size. There is mild to moderate concentric left ventricular hypertrophy. The left ventricular systolic function is severely impaired. The Ejection Fraction is 25-30%. There is global hypokinesis of the left ventricle. Abnormal septal motion secondary to conduction abnormali ty. Transmitral Doppler flow pattern is Grade III-reversible restrictive diastolic dysfunction. RIGHT VENTRICLE The right ventricle is normal size. There is normal right ventricular wall thickness. The right ventr icular systolic function is normal. There is a pacemaker lead in the right ventricle. ATRIA The left atrium is moderately dilated. The right atrium is mildly dilated. The interatrial septum is intact with no evidence for an atrial septal defect or patent foramen ovale as noted on 2-D or Dopple r imaging. AORTIC VALVE The aortic valve is calcified and displays decreased opening. Doppler and Color Flow revealed trace a ortic regurgitation. Calculated aortic valve area is 1.10 cm2 with maximum pressure gradient of 27 mm Hg and mean pressure gradient of 15 mmHg. There is moderate valvular aortic stenosis. MITRAL VALVE The mitral valve is normal in structure and function. There is no evidence of mitral valve prolapse. There is no mitral valve stenosis. Doppler and Color-flow revealed trace mitral regurgitation. TRICUSPID VALVE The tricuspid valve is normal in structure and function. Doppler and Color Flow revealed trace tricus pid regurgitation with an estimated PAP of 22 mmHg. There is no tricuspid valve stenosis. PULMONIC VALVE The pulmonic valve is not well visualized. Doppler and Color Flow revealed no pulmonic valvular regur gitation. 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 The ascending aorta is Mildly dilated measurin g 4.64 cm. The IVC is normal in size and collapses >50% with inspiration. PERICARDIAL EFFUSION There is no evidence of significant pericardial effusion. Critical Notification Critical Value: No <Conclusion> The left ventricular systolic function is severely impaired. The Ejection Fraction is 25-30%. Transmitral Doppler flow pattern is Grade III-reversible restrictive diastolic dysfunction. Pacer lead noted RA/RV. There is moderate valvular aortic stenosis. Trace mitral regurgitation. Trace tricuspid regurgitation with an estimated PAP of 22 mmHg. There is no evidence of significant pericardial effusion. Signed by : Jose Jean, Electronically Approved : 01/28/2021 09:34:47
== END ==
LOC: ECHO 13:33
PROVIDERS: ATTEND Internal Medicine Cardiovascular Disease
DX: I35.8 Other nonrheumatic aortic valve disorders (principal); I77.810 Thoracic aortic ectasia; I51.7 Cardiomegaly
CPT/HCPCS: 93306

== ENCOUNTER → 2021-04-29 | Outpatient (CLI) | payer MEDICARE, BC ==
--- NOTE | 2021-04-29 17:36 | CARD ---
MR#: [id number] Date of Study: 04/29/2021 Ordering Physician: JASON ARROYO, Referring Physician: JASON ARROYO, Tech: Mel Avalos, [facility] APPROVED REPORT EXAM: Two-dimensional and M-mode echocardiogram with Doppler and color Doppler. Other Information Quality : AverageHR: 79bpm Rhythm : Pacemaker INDICATION Dyspnea Surgery/Intervention Pacemaker: Date: 2015 RISK FACTORS Hypertension Hyperlipidemia 2D DIMENSIONS RVDd3.3 (2.9-3.5cm)Left Atrium(2D)3.4 (1.6-4.0cm) IVSd1.6 (0.7-1.1cm)Aortic Root(2D)5.9 (2.0-3.7cm) LVDd5.2 (3.9-5.9cm)LVOT Diameter2.3 (1.8-2.4cm) PWd1.4 (0.7-1.1cm)LVDs4.3 (2.5-4.0cm) FS (%) 17.9 %SV47.7 ml LVEF(%)36.8 (>50%) Aortic Valve AoV Peak Floyd.219.0cm/sAoV VTI45.5cm AO Peak GR.19.2mmHgLVOT Peak Floyd.41.6cm/s LVOT VTI 7.54cmAO Mean GR.11mmHg BREANA (VMAX)0.30jg3NYX (VTI)0.68cm2 Mitral Valve MV E Mkkfcpzm45.7cm/sMV DECEL [id number] MV A Xzeyjfnn04.4cm/sMV RHV24oo E/A Ratio2.3MVA (PHT)3.94cm2 TDI E/Lateral E'13.4E/Medial E'16.5 Pulmonary Valve PV Peak Oscweoyq78.2cm/sPV Peak Grad.2mmHg Tricuspid Valve TR P. Gvywzcyw947ut/sRAP NCTHERGS7doHt TR Peak Gr.02usEvHDEF09mqHp LEFT VENTRICLE The left ventricle is normal size. There is moderate concentric left ventricular hypertrophy. The lef t ventricular systolic function is severely impaired. The Ejection Fraction is estimated at 25%. Ther e is global hypokinesis of the left ventricle. Transmitral Doppler flow pattern is Grade III-reversib le restrictive diastolic dysfunction. RIGHT VENTRICLE The right ventricle is normal size. There is normal right ventricular wall thickness. The right ventr icular systolic function is normal. There is a pacemaker lead in the right ventricle. ATRIA The left atrium size is normal. The right atrium is mildly dilated. The interatrial septum is intact with no evidence for an atrial septal defect or patent foramen ovale as noted on 2-D or Doppler imagi ng. AORTIC VALVE The aortic valve is calcified and displays decreased opening. Doppler and Color Flow revealed trace a ortic regurgitation. Aortic valve not well interrogated but there appears to be at least moderate aor tic stenosis. MITRAL VALVE The mitral valve is normal in structure and function. There is no evidence of mitral valve prolapse. There is no mitral valve stenosis. Doppler and Color-flow revealed trace mitral regurgitation. TRICUSPID VALVE The tricuspid valve is normal in structure and function. Doppler and Color Flow revealed trace tricus pid regurgitation with an estimated PAP of 24 mmHg. There is no tricuspid valve stenosis. PULMONIC VALVE The pulmonic valve is not well visualized. Doppler and Color Flow revealed trace pulmonic valvular re gurgitation. GREAT VESSELS The aortic root is severely enlarged measuring 6.2 cm. The ascending aorta is Mildly dilated measurin g 4.44 cm. The IVC is normal in size and collapses >50% with inspiration. PERICARDIAL EFFUSION There is no evidence of significant pericardial effusion. Critical Notification Critical Value: No <Conclusion> The left ventricular systolic function is severely impaired. The Ejection Fraction is estimated at 25%. Transmitral Doppler flow pattern is Grade III-reversible restrictive diastolic dysfunction. Pacer wire noted RA/RV. Aortic valve not well interrogated but there appears to be at least moderate aortic stenosis. Trace mitral regurgitation. Trace tricuspid regurgitation with an estimated PAP of 24 mmHg. There is no evidence of significant pericardial effusion. Signed by : Jose Jean, Electronically Approved : 04/29/2021 17:36:02
== END ==
LOC: ECHO 13:56
PROVIDERS: ATTEND Internal Medicine Cardiovascular Disease
DX: I35.8 Other nonrheumatic aortic valve disorders (principal); I51.7 Cardiomegaly
CPT/HCPCS: 93306